=== PATIENT | female | born 2000 | race Caucasian/White ===

== ENCOUNTER 2021-04-30 14:27 | Emergency (ER) | payer OTHER, SELFPAY ==
[2021-04-30 14:34] VITALS: BP 148/89; PULSE 97; RESP 20; TEMP 37.1; O2SAT 100
--- NOTE | 2021-04-30 14:39 | ED.URI ---
HPI - URI/Sore Throat General Chief Complaint: Upper Respiratory Infection Stated Complaint: sore throat ear ache runny nose Time Seen by Provider: 04/30/21 14:39 Source: patient and RN notes reviewed History of Present Illness HPI Narrative: Patient is a 20-year-old female who presents the urgent care with complaints of sore throat, bilateral earache, stuffy nose and postnasal drainage. Patient states that it started on and seems to have gotten worse without any improvement from the DayQuil, NyQuil, Sudafed and throat spray. Patient denies of any known ill contacts. Denies any fever, chills, nausea, vomiting. No other acute complaints. No acute distress noted. Patient aware of the plan of care. Some parts of this dictation were generated by voice recognition software and may contain typographical and/or grammatical inaccuracies. Related Data Home Medications Medication Instructions Recorded Confirmed norgestimate-ethinyl estradiol 1 tablet PO DAILY 04/30/21 04/30/21 [Tri-Sprintec (28)] Allergies Allergy/AdvReac Type Severity Reaction Status Date / Time Penicillins Allergy Rash Verified 04/30/21 14:41 Review of Systems Review of Systems: CONSTITUTIONAL: Denies fever, chills, or sweats. EYES: Denies visual changes, redness, or discharge. ENT: Reports of rhinorrhea, postnasal drainage, congestion, sore throat bilateral otalgia CARDIOVASCULAR: Denies chest pain, palpitations, or edema. RESPIRATORY: Denies cough or dyspnea. GASTROINTESTINAL: Denies abdominal pain, nausea, vomiting, or diarrhea. GENITOURINARY: Denies dysuria or hematuria. SKIN: Denies rash or itching. MUSCULOSKELETAL: Denies back pain, joint pain, or myalgia. NEUROLOGIC: Denies headache, numbness, or weakness. All other systems reviewed are negative, except as documented in HPI. PMFSH Comments At the time of my signature, I reviewed and agree with the nursing past medical, surgical, social, and family history. There is no relevant family history pertinent to the patient complaint. Exam Narrative: GENERAL: This is a well-nourished, well-developed patient, in no apparent distress. HEAD: normocephalic, atraumatic. EYES: PERRL. Sclera clear/white. Vision is grossly intact. EARS: External ears normal, auditory canals clear and without drainage, bilateral cerumen noted without impaction. TMs normal without perforation. Hearing grossly intact. NOSE: External nose normal with no obvious nasal discharge, nares without redness, no rhinorrhea. THROAT: Mucous membranes moist. Mild erythema noted posterior oropharynx with moderate postnasal drainage NECK: Neck supple, non-tender without lymphadenopathy CARDIOVASCULAR: Regular rate and rhythm without murmurs, gallops, or rubs. RESPIRATORY: Clear to auscultation. Breath sounds equal bilaterally. No wheezes, rales, or rhonchi. SKIN: warm, intact with no suspicious lesions or rash, good texture and turgor. NEURO: awake, alert, and oriented to person, place and time. There were no obvious focal neurologic abnormalities. EXTREMITIES: No clubbing, cyanosis, or edema. Course Course Level of Care: Express Care Visit Vital Signs Vital signs: Vital Signs Temperature 98.7 F 04/30/21 14:34 Pulse Rate 97 04/30/21 14:34 Respiratory Rate 20 04/30/21 14:34 Blood Pressure 148/89 H 04/30/21 14:34 Pulse Oximetry 100 04/30/21 14:34 Temperature 98.7 F 04/30/21 14:34 Pulse Rate 97 04/30/21 14:34 Respiratory Rate 20 04/30/21 14:34 Blood Pressure 148/89 H 04/30/21 14:34 Pulse Oximetry 100 04/30/21 14:34 Reviewed-patient is informed that they may have pre-hypertension or hypertension based on a blood pressure reading in the department. I recommend the patient call the primary care provider listed on their discharge instructions or a physician of their choice this week to arrange follow-up for further evaluation of possible pre-hypertension or hypertension. MDM - URI/Sore Throat MDM Praveen
== END 2021-04-30 15:04 | disposition home or self-care (01) ==
PROVIDERS: Emergency Provider Nurse Practitioner Family
DX: J02.9 Acute pharyngitis, unspecified (principal); J32.9 Chronic sinusitis, unspecified
CPT/HCPCS: 87081; 87880; 99213; G0463

== ENCOUNTER 2023-10-19 10:16 | Emergency (ER) | payer OTHER, SELFPAY ==
[2023-10-19 10:25] VITALS: BP 135/78; PULSE 80; RESP 16; TEMP 36.6; O2SAT 100
--- NOTE | 2023-10-19 10:36 | ED.URI ---
HPI - URI/Sore Throat General Chief Complaint: Upper Respiratory Infection Stated Complaint: Sinus Problems History of Present Illness HPI Narrative: Patient presents with a 4 day history of nasal congestion cough runny nose. Patient denies any fever in no body aches. Patient states on day 1 she did have a fever at that time but has since subsided. Patient is taking multiple [id number] remedies with minimal results in her sinus pressure and bilateral ear pain Related Data Home Medications Medication Instructions Recorded Confirmed norgestimate-ethinyl estradiol 1 tablet PO DAILY 04/30/21 04/30/21 0.18 mg/0.215mg/0.25mg-35 mcg(28)tablet (Tri-Sprintec (28)) albuterol sulfate 90 mcg/actuation inhalation 10/19/23 aerosol inhaler buspirone 10 mg tablet mg 10/19/23 escitalopram oxalate 10 mg tablet mg 10/19/23 Allergies Allergy/AdvReac Type Severity Reaction Status Date / Time Penicillins Allergy Rash Verified 04/30/21 14:41 Review of Systems Review of Systems: CONSTITUTIONAL: Denies fever, chills, or sweats. EYES: Denies visual changes, redness, or discharge. ENT: Denies rhinorrhea, congestion, sore throat, or otalgia. CARDIOVASCULAR: Denies chest pain, palpitations, or edema. RESPIRATORY: Denies cough or dyspnea. GASTROINTESTINAL: Denies abdominal pain, nausea, vomiting, or diarrhea. GENITOURINARY: Denies dysuria or hematuria. SKIN: Denies rash or itching. MUSCULOSKELETAL: Denies back pain, joint pain, or myalgia. NEUROLOGIC: Denies headache, numbness, or weakness. PSYCHIATRIC: Denies anxiety or depression. PMFSH Comments At time of signature, agree with nursing past medical, surgical, social and family history. There is no relevant family history pertinent to the presenting complaint Exam Narrative: The patient is a well-developed, well-nourished in no acute distress. SKIN: Skin is warm and dry without erythema, swelling or exudate. There is good turgor. No tenting. HEAD: Atraumatic. Normocephalic. No temporal or scalp tenderness. EYES: Moist and bright. Sclera and conjunctivae normal. No discharge. PERRLA. Extraocular motions intact. Gross visual acuity intact. EARS: Pinna is normal shape and contour. Clear external auditory canals. TM pearly bryant with good cone of light, no erythema or suppuration. Bilateral cerumen noted no gross hearing deficit. NOSE: pink, moist mucosa with good air movement. Clear rhinorrhea without nasal flaring. Septum midline. Mouth: moist mucous membranes. THROAT; mild erythema noted to posterior oropharynx with moderate postnasal drainage. Without exudate or ulceration.. Uvula midline. Normal movement of soft palate. NECK: Supple and nontender with full range of motion without discomfort. No meningeal signs. LUNGS: Equal and bilateral breath sounds without wheezes, rales or rhonchi. CHEST: The chest wall is without retractions or use of accessory muscles. HEART: Has a regular rate and rhythm without murmur, gallops, click or rub. ABDOMEN: Soft, nontender with positive active bowel sounds. No rebound tenderness. EXTREMITIES: Without cyanosis, clubbing or edema. Equal 2+ distal pulses and 2 second capillary refill noted. NEUROLOGIC: alert, active, . The patient moves all extremities with normal muscle strength. Normal muscle tone is noted. Normal coordination is noted. NO focal neurological findings noted. Course Course Level of Care: Express Care Visit Vital Signs Vital signs: Vital Signs Temperature 36.6 C 10/19/23 10:25 Pulse Rate 80 10/19/23 10:25 Respiratory Rate 16 10/19/23 10:25 Blood Pressure 135/78 10/19/23 10:25 Pulse Oximetry 100 10/19/23 10:25 Oxygen Delivery Room Air 10/19/23 10:25 Temperature 36.6 C 10/19/23 10:25 Pulse Rate 80 10/19/23 10:25 Respiratory Rate 16 10/19/23 10:25 Blood Pressure 135/78 10/19/23 10:25 Pulse Oximetry 100 10/19/23 10:25 Oxygen Delivery Room Air 10/19/23 10:25 Please
== END 2023-10-19 10:39 | disposition home or self-care (01) ==
PROVIDERS: Emergency Provider Nurse Practitioner Family
DX: J32.9 Chronic sinusitis, unspecified (principal); J06.9 Acute upper respiratory infection, unspecified
CPT/HCPCS: 99213; G0463